=== PATIENT | male | born 1945 | race Caucasian/White ===

== ENCOUNTER → 2023-11-01 09:52 | Outpatient (CLI) | payer MEDICARE, SELFPAY ==
[2023-11-01 10:40] LABS: Influenza A - CEPHEID Flu A NEGATIVE (NEGATIVE); Influenza B - CEPHEID Flu B NEGATIVE (NEGATIVE); Respiratory Syncytial Virus Negative (Negative)
[2023-11-01 10:49] LABS: COVID-19 CEPHEID 4-PLEX PCR Negative (Negative)
== END ==
PROVIDERS: Visit Provider Nurse Practitioner Family
DX: R50.9 Fever, unspecified (principal)
CPT/HCPCS: 0241U